=== PATIENT | female | born 1990 | race Two or more races ===

== ENCOUNTER 2024-04-10 13:43 | Outpatient (CLI) | payer OTHER | END 2024-04-10 13:50 | disposition home or self-care (01) | LOC: RAD 13:43 | PROVIDERS: ATTEND Orthopaedic Surgery | DX: S90.31XA Contusion of right foot, initial encounter (principal) ==

== ENCOUNTER 2024-04-18 15:08 | Outpatient (CLI) | payer OTHER | END 2024-04-18 15:12 | disposition home or self-care (01) | LOC: RAD 15:08 | PROVIDERS: ATTEND Orthopaedic Surgery | DX: S90.31XA Contusion of right foot, initial encounter (principal) ==